=== PATIENT | male | born 1980 | race American Indian/Alaskan Native ===

== ENCOUNTER 2017-01-11 02:15 | Emergency (ER) | payer OTHER ==
[2017-01-11 02:25] VITALS: BP 143/97; PULSE 90; RESP 18; TEMP 97.9; O2SAT 97; BMI 27.3
[2017-01-11] MEDS ORDERED: TDAP Vaccine 0.5 mL Syr IM ONE (02:36)
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
== END 2017-01-11 09:51 | disposition left against medical advice (07) ==
LOC: ED 02:15
DX: Z00.00 Encounter for general adult medical examination without abnormal findings (principal); F10.129 Alcohol abuse with intoxication, unspecified; Z23 Encounter for immunization

== ENCOUNTER 2017-04-21 15:22 | Emergency (ER) | payer OTHER ==
[2017-04-21 15:23] VITALS: BMI 27.3
[2017-04-21 15:34] VITALS: BP 139/94; PULSE 77; RESP 18; TEMP 98.2; O2SAT 100
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
--- NOTE | 2017-04-22 10:58 | RAD ---
PROCEDURE: Cervical Spine Radiographs. HISTORY: Pain. COMPARISON: None. FINDINGS: BONES: Alignment maintained. No fracture. Dens Intact. DISC SPACES: Normal. SOFT TISSUES: Normal. No prevertebral soft tissue swelling. OTHER FINDINGS: None. IMPRESSION: Normal cervical spine radiographs
== END 2017-04-21 16:35 | disposition home or self-care (01) ==
LOC: ED 15:22
DX: S16.1XXA Strain of muscle, fascia and tendon at neck level, initial encounter (principal); W19.XXXA Unspecified fall, initial encounter; F17.210 Nicotine dependence, cigarettes, uncomplicated
CPT/HCPCS: 72050; 96372; 99283; J1885

== ENCOUNTER 2018-07-04 23:45 | Emergency (ER) | payer SELFPAY ==
[2018-07-04 23:55] VITALS: RESP 18; TEMP 97.6; BMI 25.8
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
[2018-07-05 01:40] VITALS: BP 148/96; PULSE 93; O2SAT 96
--- NOTE | 2018-07-05 09:58 | RAD ---
Date of service: 07/05/2018 PROCEDURE: CHEST RADIOGRAPH, 1 VIEW HISTORY: cough COMPARISON: None available. FINDINGS: LUNGS: The lungs are well inflated and clear. PLEURA: No pneumothorax or pleural effusion. CARDIOVASCULAR: The heart is normal in size. No aortic atherosclerotic calcifications present. OSSEOUS STRUCTURES: Within normal limits for the patient's age. VISUALIZED UPPER ABDOMEN: Normal. OTHER FINDINGS: None. IMPRESSION: No active pulmonary disease.
== END 2018-07-05 01:40 | disposition home or self-care (01) ==
LOC: ED 23:45
DX: R05 Cough (principal); Z59.0 Homelessness; F17.210 Nicotine dependence, cigarettes, uncomplicated
CPT/HCPCS: 71045; 99282; G0480